=== PATIENT | female | born 1965 | race African-American/Black ===

== ENCOUNTER 2022-06-08 06:17 | Observation (INO) | payer MEDICARE ==
[2022-06-07 12:14] LABS: BASOPHILS % 0.6 % (0.0-1.0); EOSINOPHILS # (AUTO) 0.1 (0.0-0.4); EOSINOPHILS % 2.9 % (0.0-6.0); HEMATOCRIT 42.7 % (34.2-44.1); HEMOGLOBIN 13.3 g/dL (12.0-16.0); LYMPHOCYTES # (AUTO) 1.8 (1.0-3.2); LYMPHOCYTES % 37.3 % (18.0-39.1); MEAN CORPUSCULAR HEMOGLOBIN 28.7 pg (28-32); MEAN CORPUSCULAR HGB CONC 31.1 g/dL (31-35); MEAN CORPUSCULAR VOLUME 92.2 fL (81-99); MONOCYTES # (AUTO) 0.3 (0.2-0.8); NEUTROPHILS # (AUTO) 2.6 (2.1-6.9); PLATELET COUNT 227 x10e3/uL (140-360); RED BLOOD COUNT 4.63 x10e6/uL (3.6-5.1); RED CELL DISTRIBUTION WIDTH 14.9 % (11.7-14.4)
[~2022-06-08] VITALS: Ht 165.1 cm; Wt 87.5 kg
[~2022-06-08 06:17] MED LIST: ABILIFY2 MG PO; AMLODIPINE BESYL5 MG PO; BUSPIRONE HCL5 MG PO; CEFAZOLIN SODIUM 2 GM ONE; CELECOXIB 200 MG CAP ONE; CYMBALTA30 MG PO; DEXAMETHASONE SOD PHOS 10 MG/1 ML VIAL ONE; GABAPENTIN 300 MG CAP ONE; LACTATED RINGER'S 1,000 ML ONE; MULTI-VITAMIN1 EACH PO; VITAMIN E PO
[2022-06-08] MEDS ORDERED: Vancomycin IV 1,000 MG ONE (06:34)
[2022-06-08] MEDS ORDERED: TRANEXAMIC ACID 20 ML ONE (06:34)
[2022-06-08] MEDS ORDERED: SODIUM CHLORIDE 0.9% 500ML 500 ML ONE (06:35)
[2022-06-08] MEDS ORDERED: METHOCARBAMOL 100MG/1ML 10ML VIAL ONE (06:53)
[2022-06-08] MEDS ORDERED: SODIUM CHLORIDE 0.9% 100 ML ONE (06:53)
[2022-06-08] MEDS ORDERED: ACETAMINOPHEN 1000 MG/100 ML 100 ML IV ONE (06:53)
[2022-06-08] MEDS ORDERED: ROPIVACAINE 246.25 MG, EPINEPHRINE HCL 1:1000 1ML 0.5 MG, CLONIDINE HCL 0.08 MG, KETORO... INJ ONE ×5 (08:00)
[2022-06-08] MEDS ORDERED: HYDROCODONE/APAP 7.5MG-325MG 1 EA TAB PO PRN (08:45)
[2022-06-08] MEDS ORDERED: SODIUM CHLORIDE 0.9% 1000ML 1,000 ML IV SCH (08:45)
[2022-06-08] MEDS ORDERED: ACETAMINOPHEN 650 MG SUPP PR PRN (08:45)
[2022-06-08] MEDS ORDERED: HYDROCODONE/APAP 5MG-325MG TAB PO PRN (08:45)
[2022-06-08] MEDS ORDERED: ONDANSETRON HCL INJ 2MG/ML 2ML 2 MG/ML VIAL IV PRN (08:45)
[2022-06-08] MEDS ORDERED: DOCUSATE SODIUM 100 MG CAP PO PRN (08:45)
[2022-06-08] MEDS ORDERED: DIPHENHYDRAMINE HCL INJ 50 MG/ML VIAL IV PRN (08:45)
[2022-06-08] MEDS ORDERED: ZOLPIDEM TARTRATE 5 MG TAB PO PRN (08:45)
[2022-06-08] MEDS ORDERED: MEPERIDINE HCL INJ 25 MG/ML VIAL ONE (09:00)
[2022-06-08] MEDS ORDERED: CELECOXIB 100 MG CAP PO SCH (09:00)
[2022-06-08] MEDS ORDERED: DEXMEDETOMIDINE HCL 2 ML ONE (09:07)
[2022-06-08] MEDS: FENTANYL CITRATE/PF 100MCG/2 ML INJ ONE ×2 (09:11→09:26)
[2022-06-08] MEDS ORDERED: KETOROLAC TROMETHAMINE 30 MG/ML VIAL ONE (09:15)
[2022-06-08 10:45] VITALS: BP 137/93
[2022-06-08] MEDS ORDERED: PROPOFOL IV EMULSION 10 MG/ML 20 ML VIAL ONE (12:27)
[2022-06-08] MEDS ORDERED: POVIDONE IODINE 0.05% 0.05 % ML PO ONE (12:27)
[2022-06-08] MEDS ORDERED: SEVOFLURANE INHAL SOLN 250 ML PEN BTL ONE (12:27)
[2022-06-08] MEDS ORDERED: LIDOCAINE HCL 2% LOCAL INJ 5 ML SDV VIAL INJ ONE (12:27)
[2022-06-08] MEDS ORDERED: ONDANSETRON HCL INJ 2MG/ML 2ML 2 MG/ML VIAL ONE (12:27)
[2022-06-08] MEDS ORDERED: DEXAMETHASONE SOD PHOS INJ 4 MG/ML SDV ONE (12:27)
[2022-06-08 12:32] VITALS: BP 137/93
[2022-06-08] MEDS ORDERED: ASPIRIN81 MG PO (13:04)
[2022-06-08] MEDS ORDERED: BUPIVACAINE 0.25% 30ML SDV ONE (13:13)
[2022-06-08] MEDS ORDERED: MIDAZOLAM HCL 2 MG/2 ML VIAL ONE (13:37)
[2022-06-08] MEDS ORDERED: FENTANYL CITRATE/PF 100MCG/2 ML INJ ONE (13:37)
[2022-06-08] MEDS ORDERED: ACETAMINOPHEN 1000 MG/100 ML IV PRN (14:00)
[2022-06-08] MEDS ORDERED: XARELTO10 MG PO (15:07)
[2022-06-09] MEDS ORDERED: RIVAROXABAN 10 MG TABLET PO SCH (17:00)
== END 2022-06-08 16:30 | disposition home or self-care (01) ==
LOC: OR 06:17 → PACU V 08:45 → MED/SURG 10:43
PROVIDERS: ADMIT Specialist; ATTEND Specialist
DX: M17.0 Bilateral primary osteoarthritis of knee (principal); K29.70 Gastritis, unspecified, without bleeding; I10 Essential (primary) hypertension; Z98.84 Bariatric surgery status; Z20.822 Contact with and (suspected) exposure to COVID-19
CPT/HCPCS: 0223U; 36415; 71046; 85025; 86850; 86900; 86920; 93005; 94799; C1713; C1776; G0378; J0171; J1100; J1885; J2001; J2175; J2250; J2405; J2795; J2800; J3370; J7030; J7040; J7050